=== PATIENT | male | born 1980 | race Caucasian/White ===

== ENCOUNTER 2018-02-10 09:29 | Emergency (ER) | payer OTHER ==
[~2018-02-10] VITALS: Ht 182.9 cm; Wt 80.0 kg
[2018-02-10] MEDS ORDERED: SODIUM CHLORIDE FLUSH 10ML SYR IVF ONE (10:00)
[2018-02-10] MEDS ORDERED: SODIUM CHLORIDE 0.9% 1,000ML IVBOLUS ONE (10:00)
[2018-02-10] MEDS ORDERED: LORazepam 2 MG/ML, 1ML IVPush ONE ×2 (10:00→15:00)
[2018-02-10] MEDS ORDERED: LORazepam 2 MG/ML, 1ML ONE (10:04)
[2018-02-10 10:15] LABS: BASOPHILS # (AUTO) 0.04 x10^3/uL (0-0.1); BASOPHILS % (AUTO) 1 % (0-1); EOSINOPHILS # (AUTO) 0.07 x10^3/uL (0-0.4); EOSINOPHILS % (AUTO) 1 % (1-7); LYMPHOCYTES % (AUTO) 12 % (22-44); MD NO; MEAN CORPUSCULAR HEMOGLOBIN 35.1 pg (27.5-34.5); MEAN CORPUSCULAR HGB CONC 34.2 g/dL (33.2-36.2); MEAN CORPUSCULAR VOLUME 102.7 fL (81-97); MEAN PLATELET VOLUME 9.8 fL (7.4-10.4); MONOCYTES # (AUTO) 0.46 x10^3/uL (0.2-0.8); MONOCYTES % (AUTO) 7 % (2-9); NEUTROPHILS # (AUTO) 5.15 x10^3/uL (1.8-6.8); NEUTROPHILS % (AUTO) 79 % (42-75); PLATELET COUNT 112 x10^3/uL (130-400)
[2018-02-10 10:22] LABS: ALANINE AMINOTRANSFERASE 258 U/L (12-78); ANION GAP 17 mmol/L (5-15); CALCIUM 9.4 mg/dL (8.5-10.1); CHLORIDE 99 mmol/L (98-107); CREATININE 0.97 mg/dL (0.7-1.3)
[2018-02-10 10:24] LABS: ALKALINE PHOSPHATASE 182 U/L (45-117); BILIRUBIN,TOTAL 3.3 mg/dL (0.2-1.0); TOTAL PROTEIN 8.8 g/dL (6.4-8.2)
[2018-02-10] MEDS ORDERED: PLEASE ENTER ALLERGIES MC SCH (10:30)
[2018-02-10] MEDS ORDERED: SODIUM CHLORIDE 0.9% 1,000 ML IV ONE (10:34)
[2018-02-10 10:38] LABS: INTERNATIONAL NORMALIZED RATIO 1.1 (0.93-1.1); PROTHROMBIN TIME 11.4 Seconds (9.6-11.5)
[2018-02-10 11:44] LABS: MICROSCOPIC INDICATED
[2018-02-10] MEDS ORDERED: ONDANSETRON 2MG/ML, 2ML ONE (11:56)
[2018-02-10] MEDS ORDERED: ONDANSETRON 2MG/ML, 2ML IVPush ONE (12:00)
[2018-02-10 12:02] LABS: CULTURE INDICATED? NO
[2018-02-10] MEDS ORDERED: OMNIPAQUE 350 MG/ML, 100ML BOTTLE ONE (12:41)
[2018-02-10] MEDS ORDERED: MAALOX/HYOSCYAMINE/LIDOCAINE 45 ML BTL ONE (13:28)
[2018-02-10] MEDS ORDERED: MAALOX/HYOSCYAMINE/LIDOCAINE 45 ML BTL PO ONE (13:30)
[2018-02-10 13:55] VITALS: BP 167/94
== END 2018-02-10 16:03 | disposition home or self-care (01) ==
LOC: ED 15:57
DX: F10.239 Alcohol dependence with withdrawal, unspecified (principal); R94.5 Abnormal results of liver function studies; R11.10 Vomiting, unspecified; R45.4 Irritability and anger
CPT/HCPCS: 36415; 74022; 74177; 80053; 80307; 81001; 83690; 85025; 85610; 85730; 96361; 96374; 96375; 96376; 99285; J2060; J2405; J7030; Q9967